=== PATIENT | male | born 1940 | race Hispanic/Latino ===

== ENCOUNTER 2019-02-05 13:20 | Outpatient (CLI) | payer OTHER ==
--- NOTE | 2019-02-05 15:29 | CT ---
CT RIGHT SHOULDER WITHOUT IV CONTRAST: HISTORY: Pain for months. FINDINGS: Bony demineralization. Anterior subcoracoid dislocation of the glenohumeral joint. 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 There is some muscle volume loss, particularl y of the supraspinatus muscle, but also the infraspinatus and the superior portion of the subscapular is muscle. IMPRESSION: 1. Anterior subcoracoid dislocation, right glenohumeral joint. 2. Bony demineralization. 3. Several small bony chip fractures secondary to Hill-Sachs osteochondral impaction injury. 4. Muscle volume loss of the supraspinatus and infraspinatus and superior portion of the subscapular is muscles. POS: RRE
== END 2019-02-05 13:21 | disposition home or self-care (01) ==
LOC: BICCT 13:20
PROVIDERS: ATTEND Orthopaedic Surgery
DX: S43.004A Unspecified dislocation of right shoulder joint, initial encounter (principal); S14.3XXA Injury of brachial plexus, initial encounter; M81.0 Age-related osteoporosis without current pathological fracture; M62.89 Other specified disorders of muscle

== ENCOUNTER 2019-04-16 11:00 | Inpatient (IN) | payer OTHER ==
[2019-04-16 11:37] VITALS: BMI 29.0
[2019-04-17] MEDS ORDERED: Midazolam HCl 2 mg/2 ml Vial ONE (06:29)
[2019-04-17] MEDS ORDERED: Fentanyl 100 MCG/2 ML VIAL ONE (06:29)
[2019-04-17] MEDS ORDERED: Tranexamic Acid 1,000 MG/10 ML VIAL ONE (06:36)
[2019-04-17] MEDS ORDERED: Sodium Chloride 0.9% 100 ML ONE (06:36)
[2019-04-17] MEDS ORDERED: Promethazine HCl 25 MG/ML VIAL IM PRN ×2 (07:39→09:20)
[2019-04-17] MEDS ORDERED: Zolpidem Tartrate 5 MG TAB PO PRN (07:39)
[2019-04-17] MEDS ORDERED: HYDROcodone/Acetaminophen 10/325 mg Tablet PO PRN ×4 (07:39→12:05)
[2019-04-17] MEDS ORDERED: traMADol HCl 50 MG TAB PO PRN ×4 (07:39→12:05)
[2019-04-17] MEDS ORDERED: Ondansetron PF 4 MG/2 ML Vial IVP PRN ×2 (07:39→12:05)
[2019-04-17] MEDS ORDERED: Ropivacaine 0.2% 550 ML 550 ML NERVE BLCK SCH (07:39)
[2019-04-17] MEDS ORDERED: Fentanyl 100 MCG/2 ML VIAL SLOW IVP PRN (07:40)
[2019-04-17] MEDS ORDERED: Promethazine HCl 25 MG/ML VIAL SLOW IVP PRN (09:20)
[2019-04-17] MEDS ORDERED: Ondansetron HCl/PF 4 MG/2 ML Vial IVP PRN (09:20)
--- NOTE | 2019-04-17 10:58 | RAD ---
EXAM: XR Shoulder Rt 2 View PROVIDED CLINICAL HISTORY: Postop COMPARISON: None FINDINGS: Reverse total shoulder arthroplasty demonstrated. No evidence for an acute process. IMPRESSION: As above.
[2019-04-17] MEDS ORDERED: diphenhydrAMINE 50 MG CAP PO PRN (12:05)
[2019-04-17] MEDS ORDERED: Ketorolac Tromethamine 30 MG/ML VIAL IVP SCH (12:05)
[2019-04-17] MEDS ORDERED: Ondansetron ODT 4 MG TAB PO PRN (12:05)
[2019-04-17] MEDS ORDERED: Acetaminophen 325 MG TAB PO PRN (12:05)
[2019-04-17] MEDS ORDERED: Methocarbamol 500 MG TAB PO PRN (12:05)
[2019-04-17] MEDS ORDERED: Bisacodyl 10 MG SUPP PR PRN (12:05)
[2019-04-17] MEDS ORDERED: Methocarbamol 1 GM/10 ML VIAL SLOW IVP PRN (12:05)
[2019-04-17] MEDS ORDERED: Milk Of Magnesia 30 ML UDCUP PO PRN (12:05)
[2019-04-17] MEDS ORDERED: Gabapentin 300 MG CAP PO SCH (12:30)
[2019-04-17] MEDS ORDERED: Famotidine 20 MG TAB PO SCH (12:30)
--- NOTE | 2019-04-17 12:33 | HP ---
CHIEF COMPLAINT: Right shoulder pain. HISTORY OF PRESENT ILLNESS: Mr. Rocha is a 78-year-old male, status post shoulder dislocation, which began years ago, but had a shoulder dislocation likely about 7 or 8 months ago in [place]. The patient has pain, has difficulty, he has some numbness in his right arm. The patient was previously seen by Neurosurgery. The patient was manipulated by chiropractor. The patient had EMG performed, which showed deltoid with irregularities, but he does have motor function of his deltoid. He had a C8 through T1 without waveforms, which is consistent with a stroke like picture in his right lower extremity. The patient had a CT scan showing dislocation of right shoulder. PAST MEDICAL HISTORY: Arthritis, heart disease unknown. PAST SURGICAL HISTORY: None. ALLERGIES: NO KNOWN DRUG ALLERGIES. SOCIAL HISTORY: Former smoker. Denies illicit drug use. He is currently retired. Pain 4 to 6 out of 10. PHYSICAL EXAMINATION: GENERAL: Alert and oriented male, Armenian-speaking, in no acute distress. EXTREMITIES: Right elbow, the patient has interosseous wasting. Flexion arc of his elbow, 40 to 110 degrees. He has triceps and biceps strength with fire. The patient has an anterior shoulder deformity. Active flexion, able to flex about 40 degrees he is able to fire all three deltoid heads, anterior, posterior, and lateral heads. He has flexion deformity, and CT scan showing an anterior subcoracoid dislocation with demineralization and chip fracture, kind of Hill-Sachs deformity with muscle volume loss of supraspinatus and infraspinatus. IMPRESSION: Right chronic shoulder dislocation; 1. Brachial plexus injury. 2. C8 through T1. ASSESSMENT AND PLAN: I discussed with the patient again and family through oncology nurse that this is a difficult procedure. The patient needs to have the shoulder reduced. I feel like he needs reverse shoulder arthroplasty for this to keep it reduced. I discussed the risks and benefits of surgery to include pain, scar, bleeding, infection, decreased range of motion and strength, failure of procedure, continued pain, further damage to nerves, loss of life or limb. The patient and family understand these risks and benefits, understand that we are doing this apparently for pain control. He does have deltoid function. He may not recover all of his nerve function of his right arm. He understand that and elected to proceed. We will proceed forward with surgery on the patient. We discussed also the risk of a nerve block . Job ID: [id number]
[2019-04-17] MEDS: Ketorolac Tromethamine 30 MG/ML VIAL IVP SCH ×2 (13:23→18:26)
[2019-04-17] MEDS: CEFAZOLIN 2 GM in Premix Bag 1 BAG IVPB SCH ×2 (13:24→22:28)
[2019-04-17] MEDS: Dextrose 5 %-0.45 % NaCl 1,000 ML IV SCH (18:41)
[2019-04-17] MEDS ORDERED: Vancomycin HCl 1 GM in Premix Bag 1 BAG IVPB SCH (19:00)
[2019-04-17] MEDS: Gabapentin 300 MG CAP PO SCH (20:45)
[2019-04-17] MEDS: Famotidine 20 MG TAB PO SCH (20:46)
[2019-04-18] MEDS: Ketorolac Tromethamine 30 MG/ML VIAL IVP SCH ×5 (00:12→23:19)
[2019-04-18] MEDS: Dextrose 5 %-0.45 % NaCl 1,000 ML IV SCH ×2 (04:44→20:17)
--- NOTE | 2019-04-18 08:14 | OP ---
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 PROCEDURE PERFORMED: Right reverse shoulder arthroplasty. STAFF: Ever Santiago MD ANESTHESIOLOGIST: Tyrone Palencia CRNA ANESTHESIA: The patient received a general endotracheal intubation, interscalene block. ESTIMATED BLOOD LOSS: 350 mL. TOURNIQUET TIME: None. IMPLANTS: Tornier Flex 5B long-stem with a flex high offset tray and a flex C poly 6 mm, a 36 mm eccentric 2 +2sphere, and a 25 mm standard 2 locking and 2 nonlocking screws as Tornier implants. ANTIBIOTICS: The patient received Ancef 2 g, vancomycin 1 g, and TXA 1 g. COMPLICATIONS: None. HISTORY OF PRESENT ILLNESS: Mr. Leander Rocha is a 78-year-old male with a chronic locked dislocation of his right shoulder. He had a brachial plexus injury affecting C8-T1. He also had axillary nerve function, but not perfect. I discussed with the patient the risks and benefits of a right reverse shoulder arthroplasty to include pain, scar, bleeding, infection, failure to recover the nerves, further damage to nerves, decreased range of motion or strength, need for further surgeries, dislocation, infection, loss of life or limb. The patient understood these risks and benefits that talked to him both preoperatively as well as in the office. They understood the risks and benefits and elected to proceed. DESCRIPTION OF PROCEDURE: Time-out was performed designating the patient's right upper extremity as the operative site, based on site, consent, and markings. After time-out, the patient's right upper extremity was prepped and draped in sterile fashion. Ioban was placed over the skin, received his antibiotics. Then, we made a skin incision, came down, found the vein, moved it laterally, came down, found the pec and we were immediately on the humerus. We used the humerus as our guide, followed the bicipital groove up, coming down in between what was the conjoined, staying only on bone to come and release off the neck, both inferior neck and coming on to the cuff superiorly, took a portion of the CA ligament. We were able to then dislocate the reduced ring head out of the subcoracoid recess, cut the entire cartilage off, broached up to size 4, and placed this 4 with a hub cap. We then attempted to find there was a scar plane that was hiding the patient's joint. There was no definitive plane. I felt that I palpated the superior aspect of the glenoid filling between the deltoid fibers. I came down on the superior glenoid, taking down and opening the space. I then used cautery and retractors to place and visualize the superior aspect of the glenoid. After placing [place] I was able to place inferior, there was some scar that had formed in the patient's subdeltoid recess. I took a small section of scar to help with positioning of the shoulder. We then placed our Leno to expose the 360 degree release. I felt I could see what appeared to be the axillary nerve running at a fat stripe on the inferior aspect of the wound, which I was able to protect. We cleaned 360 degrees of the glenoid, pinned this in place and our [place], difficult to retract that this dislocation was so chronic, difficult to retract his arm posteriorly, but we were able to. We exposed the glenoid. I used an opening guide pin followed by opening drill. I drilled it with inferior tilt. I placed my reamer, reamed, got a smiley face inferiorly. I rongeured off some of the bone. I then placed the larger drill and placed a standard 25 mm baseplate. I placed a screw anteriorly, which was 29 mm, a posterior that was 18, and had a good firm fixation of my locking screws. I was able to wash and place an eccentric sphere. I was concerned because he was inferior anterior so long,he would be lax, also overhanging the potential inferior aspect of the glenoid. We then placed the Glen[place] and moved back. The humerus 4 had been kind of toggling. We placed a long-stem 4 because of poor bone in the metaphysis. We pulled it out and placed a 5B long-stem. With this, we placed a C poly first with a normal flex poly when we had placement with a D size poly, but that was too difficult to reduce. Therefore, we went back to the C and reduced it in place. It actually had good overall arc of motion. The patient was stiff, but did have a functional range of motion. I was happy with the patient's reduction , internal and external rotation and elevation. We then washed, removed, and placed a 5 stem and reduced it into place. We closed the pectoral interval with 0 and 2- 0. We closed subcu with 2-0 and closed the skin with coby. The patient will be placed in a sling. Elbow, wrist, and hand motion. No shoulder range of motion. Follow up with me in 2 weeks. He will be admitted overnight, started on gabapentin and pain medications followed by YEIMY ronquillo. Job ID: [id number] [id number]
[2019-04-18] MEDS ORDERED: FLU VACC TS2019-20(65YR UP)/PF 180 MCG/0.5 ML SYRINGE IM ONE (09:00)
[2019-04-18] MEDS ORDERED: Prevnar 13-Val Conj/PF 0.5 ML SYRINGE IM ONE (09:00)
[2019-04-18] MEDS: Famotidine 20 MG TAB PO SCH ×2 (09:41→21:16)
[2019-04-18] MEDS: Gabapentin 300 MG CAP PO SCH ×2 (09:41→21:17)
[2019-04-19] MEDS: Ketorolac Tromethamine 30 MG/ML VIAL IVP SCH (05:09)
[2019-04-19] MEDS: Famotidine 20 MG TAB PO SCH (09:09)
[2019-04-19] MEDS: Gabapentin 300 MG CAP PO SCH (09:09)
[2019-04-19 11:03] VITALS: BP 108/67; TEMP 97.8
== END 2019-04-19 12:16 | disposition home or self-care (01) | DRG 483 ==
LOC: SURG A 04-17 05:42
PROVIDERS: ADMIT Orthopaedic Surgery; ATTEND Orthopaedic Surgery
PROC: 0RRJ00Z Replacement of Right Shoulder Joint with Reverse Ball and Socket Synthetic Substitute, Open Approach (ICD-10-PCS; principal; 2019-04-19)
DX: M24.411 Recurrent dislocation, right shoulder (principal); S14.3XXA Injury of brachial plexus, initial encounter; I51.9 Heart disease, unspecified; M19.90 Unspecified osteoarthritis, unspecified site; G54.0 Brachial plexus disorders; X58.XXXA Exposure to other specified factors, initial encounter; Z87.891 Personal history of nicotine dependence
CPT/HCPCS: 90471; 90662; A4306; C1713; G0008; J0690; J1885; J2250; J2795; J3010; J3370; J3490

== ENCOUNTER 2019-04-16 11:26 | Outpatient (CLI) | payer OTHER ==
[2019-04-16 12:33] LABS: #Eosinphils 0.1 thou/uL (0.0-0.7); #Lymphocytes 1.5 thou/uL (1.20-3.40); #Monocytes 0.5 thou/uL (0.11-0.59); #Neutrophils 3.9 thou/uL (1.40-6.50); %Basophils 0.5 % (0.0-1.0); %Eosinophils 1.8 % (0.0-10.0); %Lymphocytes 25.3 % (21.0-51.0); %Monocytes 7.5 % (0.0-10.0); Hemoglobin 13.2 g/dL (14.0-18.0); Mean Corpuscular HGB CONC 33.9 g/dL (32.0-36.0); Mean Corpuscular Hemoglobin 30.3 pg (27.0-31.0); Mean Corpuscular Volume 89.5 fL (78.0-98.0); Mean Platelet Volume 7.4 fL (7.4-10.4); Platelet Count 259 thou/uL (130-400); RBC Distribution Width 12.6 % (11.5-14.5); Red Blood Cell (RBC) Count 4.35 mill/uL (4.70-6.10)
[2019-04-16 12:48] LABS: Prothrombin Time 13.3 SEC (12.0-14.7)
[2019-04-16 13:00] LABS: Anion Gap 11 mmol/L (10-20); BUN (Urea Nitrogen) 19 mg/dL (8.4-25.7); Calc. Creatinine Clearance 0 mL/min (70-130); Calcium 9.3 mg/dL (7.8-10.44); Carbon Dioxide 27 mmol/L (23-31); Chloride 106 mmol/L (98-107); Estimated GFR-MDRD Greater than 90; Glucose 109 mg/dL (83-110); Potassium 4.1 mmol/L (3.5-5.1); Sodium 140 mmol/L (136-145)
--- NOTE | 2019-04-18 19:50 | EKG ---
Test Reason : Blood Pressure : / mmHG Vent. Rate : 057 BPM Atrial Rate : 057 BPM P-R Int : 162 ms QRS Dur : 080 ms QT Int : 424 ms P-R-T Axes : 071 050 058 degrees QTc Int : 412 ms Sinus bradycardia Otherwise normal ECG Confirmed by SHOAIB MEDELLIN, DR. Snider ([id number]) on 04/18/2019 7:49:47 PM Referred By: WISAM Confirmed By:DR. Agatha CRAMER MD
== END 2019-04-16 11:27 | disposition home or self-care (01) ==
LOC: LABBT 11:26
PROVIDERS: ATTEND Orthopaedic Surgery
DX: Z01.812 Encounter for preprocedural laboratory examination (principal); S43.004A Unspecified dislocation of right shoulder joint, initial encounter
CPT/HCPCS: 80048; 85025; 85610; 93005; 93010

== ENCOUNTER 2023-04-04 14:06 | Outpatient (CLI) | payer OTHER | END 2023-04-04 14:07 | disposition home or self-care (01) | LOC: EEG 14:06 | PROVIDERS: ATTEND Psychiatry & Neurology Neurology | DX: F03.C18 Unspecified dementia, severe, with other behavioral disturbance (principal) | CPT/HCPCS: 95816; 95957 ==

== ENCOUNTER 2023-04-05 11:00 | Outpatient (CLI) | payer OTHER | END 2023-04-05 11:01 | disposition home or self-care (01) | LOC: PET 11:00 | PROVIDERS: ATTEND Psychiatry & Neurology Neurology | DX: F03.C18 Unspecified dementia, severe, with other behavioral disturbance (principal); G96.08 Other cranial cerebrospinal fluid leak | CPT/HCPCS: 78803; A9552 ==

== ENCOUNTER 2023-12-26 14:00 | Outpatient (CLI) | payer OTHER | END 2023-12-26 14:01 | disposition home or self-care (01) | LOC: BICCT 14:00 | PROVIDERS: ATTEND Psychiatry & Neurology Neurology | DX: G96.08 Other cranial cerebrospinal fluid leak (principal); M25.551 Pain in right hip | CPT/HCPCS: 70450 ==